=== PATIENT | male | born 1955 | race Caucasian/White ===

== ENCOUNTER → 2017-10-27 | Emergency (ER) | payer OTHER ==
[~2017-10-27] VITALS: Ht 170.2 cm; Wt 136.1 kg
[~2017-10-27] MED LIST: KETO10TA2 PO
== END | disposition home or self-care (01) ==
LOC: ER 23:08
DX: N21.0 Calculus in bladder (principal)

== ENCOUNTER 2019-07-09 11:22 | Outpatient (CLI) | payer OTHER | END 2019-07-09 11:38 | disposition home or self-care (01) | LOC: LAB 11:22 | DX: I10 Essential (primary) hypertension (principal); M54.5 Low back pain; Z01.810 Encounter for preprocedural cardiovascular examination; E03.8 Other specified hypothyroidism; E78.49 Other hyperlipidemia; E11.51 Type 2 diabetes mellitus with diabetic peripheral angiopathy without gangrene; E55.9 Vitamin D deficiency, unspecified; E11.9 Type 2 diabetes mellitus without complications; E66.8 Other obesity; R09.81 Nasal congestion; G47.30 Sleep apnea, unspecified; G47.37 Central sleep apnea in conditions classified elsewhere ==

== ENCOUNTER → 2019-07-10 | Outpatient (CLI) | payer OTHER | END | disposition home or self-care (01) | LOC: NUCLEAR 07:30 | DX: I11.9 Hypertensive heart disease without heart failure (principal); I10 Essential (primary) hypertension ==

== ENCOUNTER → 2019-10-12 13:13 | Outpatient (CLI) | payer OTHER | END | disposition home or self-care (01) | LOC: LAB 13:13 | DX: M54.5 Low back pain (principal); Z01.810 Encounter for preprocedural cardiovascular examination; E03.8 Other specified hypothyroidism; E78.89 Other lipoprotein metabolism disorders; E11.51 Type 2 diabetes mellitus with diabetic peripheral angiopathy without gangrene; E55.9 Vitamin D deficiency, unspecified; E66.8 Other obesity; I50.32 Chronic diastolic (congestive) heart failure; I50.20 Unspecified systolic (congestive) heart failure; R09.81 Nasal congestion; G47.30 Sleep apnea, unspecified; G47.37 Central sleep apnea in conditions classified elsewhere; Q23.8 Other congenital malformations of aortic and mitral valves; I77.1 Stricture of artery ==

== ENCOUNTER → 2019-10-13 10:32 | Outpatient (CLI) | payer OTHER | END | disposition home or self-care (01) | LOC: LAB 10:32 | DX: M54.5 Low back pain (principal); Z01.810 Encounter for preprocedural cardiovascular examination; E03.8 Other specified hypothyroidism; E78.89 Other lipoprotein metabolism disorders; E11.51 Type 2 diabetes mellitus with diabetic peripheral angiopathy without gangrene; E55.9 Vitamin D deficiency, unspecified; E66.8 Other obesity; I50.32 Chronic diastolic (congestive) heart failure; I50.20 Unspecified systolic (congestive) heart failure; R09.81 Nasal congestion; G47.30 Sleep apnea, unspecified; G47.37 Central sleep apnea in conditions classified elsewhere; Q23.8 Other congenital malformations of aortic and mitral valves; I77.1 Stricture of artery; Z12.11 Encounter for screening for malignant neoplasm of colon ==

== ENCOUNTER → 2020-02-15 08:37 | Outpatient (CLI) | payer OTHER | END | disposition home or self-care (01) | LOC: LAB 08:37 | PROVIDERS: ATTEND Internal Medicine | DX: M54.5 Low back pain (principal); E03.8 Other specified hypothyroidism; E78.89 Other lipoprotein metabolism disorders; E11.51 Type 2 diabetes mellitus with diabetic peripheral angiopathy without gangrene; E55.9 Vitamin D deficiency, unspecified; E66.8 Other obesity; I50.20 Unspecified systolic (congestive) heart failure; R09.81 Nasal congestion; G47.30 Sleep apnea, unspecified; G47.37 Central sleep apnea in conditions classified elsewhere; Q23.8 Other congenital malformations of aortic and mitral valves; N40.0 Benign prostatic hyperplasia without lower urinary tract symptoms ==

== ENCOUNTER 2020-02-22 09:16 | Outpatient (CLI) | payer OTHER | END 2020-02-22 09:25 | disposition home or self-care (01) | LOC: RAD 09:16 | DX: I31.3 Pericardial effusion (noninflammatory) (principal) ==

== ENCOUNTER → 2020-05-30 | Outpatient (CLI) | payer OTHER | END | disposition home or self-care (01) | LOC: LAB 13:19 | PROVIDERS: ATTEND Internal Medicine | DX: M54.5 Low back pain (principal); E03.8 Other specified hypothyroidism; E78.89 Other lipoprotein metabolism disorders; E11.51 Type 2 diabetes mellitus with diabetic peripheral angiopathy without gangrene; E55.9 Vitamin D deficiency, unspecified; E66.8 Other obesity; I50.32 Chronic diastolic (congestive) heart failure; I50.20 Unspecified systolic (congestive) heart failure; R09.81 Nasal congestion; G47.30 Sleep apnea, unspecified; G47.37 Central sleep apnea in conditions classified elsewhere; Q23.8 Other congenital malformations of aortic and mitral valves; I77.1 Stricture of artery ==

== ENCOUNTER 2020-07-04 14:50 | Emergency (ER) | payer OTHER ==
[~2020-07-04] VITALS: Ht 170.2 cm; Wt 107.0 kg
[2020-07-04] MEDS ORDERED: PLAVIX75 MG (15:03)
[2020-07-04] MEDS ORDERED: AZOR 10-20 MG1 EACH (15:03)
[2020-07-04] MEDS ORDERED: PEPCID AC20 MG (15:04)
[2020-07-04] MEDS ORDERED: AMIODARONE HCL100 MG (15:04)
[2020-07-04] MEDS ORDERED: ECOTRIN81 MG (15:04)
[2020-07-04] MEDS ORDERED: TOPROL XL25 M1 (15:04)
== END 2020-07-04 20:53 | disposition home or self-care (01) ==
LOC: ER 14:50
DX: N45.3 Epididymo-orchitis (principal); N39.0 Urinary tract infection, site not specified; N43.2 Other hydrocele; I86.1 Scrotal varices

== ENCOUNTER → 2020-07-06 10:14 | Outpatient (CLI) | payer OTHER ==
[~2020-07-06 10:14] MED LIST changes: +AMIODARONE HCL100 MG; +AZOR 10-20 MG1 EACH; +ECOTRIN81 MG; +PEPCID AC20 MG; +PLAVIX75 MG; +TOPROL XL25 M1
== END | disposition home or self-care (01) ==
LOC: LAB 10:14
PROVIDERS: ATTEND Internal Medicine Cardiovascular Disease
DX: N39.0 Urinary tract infection, site not specified (principal)

== ENCOUNTER 2020-09-12 09:38 | Outpatient (CLI) | payer OTHER | END 2020-09-12 09:46 | disposition home or self-care (01) | LOC: LAB 09:38 | PROVIDERS: ATTEND Urology | DX: R97.20 Elevated prostate specific antigen [PSA] (principal); E03.8 Other specified hypothyroidism; I10 Essential (primary) hypertension; M54.5 Low back pain; E78.89 Other lipoprotein metabolism disorders; E11.51 Type 2 diabetes mellitus with diabetic peripheral angiopathy without gangrene; E55.9 Vitamin D deficiency, unspecified; E66.8 Other obesity; R09.81 Nasal congestion; G47.30 Sleep apnea, unspecified; G47.37 Central sleep apnea in conditions classified elsewhere; Q23.8 Other congenital malformations of aortic and mitral valves; I77.1 Stricture of artery; N40.0 Benign prostatic hyperplasia without lower urinary tract symptoms; N30.00 Acute cystitis without hematuria; R31.1 Benign essential microscopic hematuria ==

== ENCOUNTER → 2020-09-15 09:58 | Outpatient (CLI) | payer OTHER | END | disposition home or self-care (01) | LOC: LAB 09:58 | PROVIDERS: ATTEND Urology | DX: R97.20 Elevated prostate specific antigen [PSA] (principal); N30.00 Acute cystitis without hematuria; N40.0 Benign prostatic hyperplasia without lower urinary tract symptoms; R31.1 Benign essential microscopic hematuria ==

== ENCOUNTER 2020-10-19 10:06 | Outpatient (CLI) | payer OTHER | END 2020-10-19 10:13 | disposition home or self-care (01) | LOC: LAB 10:06 | PROVIDERS: ATTEND Urology | DX: N30.00 Acute cystitis without hematuria (principal) ==

== ENCOUNTER 2020-10-25 08:15 | Outpatient (CLI) | payer OTHER | END 2020-10-25 08:30 | disposition home or self-care (01) | LOC: MAMO-SONO 08:15 → SONOGRAMA 08:15 | PROVIDERS: ATTEND Urology | DX: Q61.01 Congenital single renal cyst (principal); N40.0 Benign prostatic hyperplasia without lower urinary tract symptoms; R31.1 Benign essential microscopic hematuria; R33.8 Other retention of urine; N30.00 Acute cystitis without hematuria ==

== ENCOUNTER → 2020-12-13 09:05 | Outpatient (CLI) | payer OTHER | END | disposition home or self-care (01) | LOC: LAB 09:05 | PROVIDERS: ATTEND Internal Medicine | DX: I10 Essential (primary) hypertension (principal); M54.5 Low back pain; E03.8 Other specified hypothyroidism; E78.89 Other lipoprotein metabolism disorders; E11.51 Type 2 diabetes mellitus with diabetic peripheral angiopathy without gangrene; E66.8 Other obesity; I50.32 Chronic diastolic (congestive) heart failure; I50.20 Unspecified systolic (congestive) heart failure; R09.81 Nasal congestion; G47.37 Central sleep apnea in conditions classified elsewhere; G47.30 Sleep apnea, unspecified; Q23.8 Other congenital malformations of aortic and mitral valves; I77.1 Stricture of artery ==

== ENCOUNTER → 2020-12-15 09:25 | Outpatient (CLI) | payer OTHER | END | disposition home or self-care (01) | LOC: LAB 09:25 | PROVIDERS: ATTEND Internal Medicine | DX: I10 Essential (primary) hypertension (principal); M54.5 Low back pain; E03.9 Hypothyroidism, unspecified; E78.9 Disorder of lipoprotein metabolism, unspecified; E11.51 Type 2 diabetes mellitus with diabetic peripheral angiopathy without gangrene; E55.9 Vitamin D deficiency, unspecified; E11.9 Type 2 diabetes mellitus without complications; E66.8 Other obesity; I50.32 Chronic diastolic (congestive) heart failure; I50.20 Unspecified systolic (congestive) heart failure; R09.81 Nasal congestion; G47.30 Sleep apnea, unspecified; G47.37 Central sleep apnea in conditions classified elsewhere; Q23.8 Other congenital malformations of aortic and mitral valves; I77.1 Stricture of artery ==

== ENCOUNTER 2021-03-17 09:00 | Outpatient (CLI) | payer OTHER | END 2021-03-17 09:02 | disposition home or self-care (01) | LOC: LAB 09:00 | PROVIDERS: ATTEND Internal Medicine | DX: I10 Essential (primary) hypertension (principal); M54.5 Low back pain; E03.8 Other specified hypothyroidism; E78.89 Other lipoprotein metabolism disorders; E11.51 Type 2 diabetes mellitus with diabetic peripheral angiopathy without gangrene; E55.9 Vitamin D deficiency, unspecified; E66.8 Other obesity; R09.81 Nasal congestion; G47.30 Sleep apnea, unspecified; G47.37 Central sleep apnea in conditions classified elsewhere; Q23.8 Other congenital malformations of aortic and mitral valves; I77.1 Stricture of artery; I11.9 Hypertensive heart disease without heart failure ==

== ENCOUNTER → 2021-06-16 09:34 | Outpatient (CLI) | payer OTHER | END | disposition home or self-care (01) | LOC: LAB 09:34 | PROVIDERS: ATTEND Emergency Medicine Pediatric Emergency Medicine | DX: I10 Essential (primary) hypertension (principal); M54.59 Other low back pain; E03.8 Other specified hypothyroidism; E78.89 Other lipoprotein metabolism disorders; E11.51 Type 2 diabetes mellitus with diabetic peripheral angiopathy without gangrene; E55.9 Vitamin D deficiency, unspecified; E11.9 Type 2 diabetes mellitus without complications; E66.8 Other obesity; I50.20 Unspecified systolic (congestive) heart failure; R09.81 Nasal congestion; G47.30 Sleep apnea, unspecified; G47.37 Central sleep apnea in conditions classified elsewhere; Q23.8 Other congenital malformations of aortic and mitral valves; I77.1 Stricture of artery ==

== ENCOUNTER → 2021-07-21 09:41 | Outpatient (CLI) | payer OTHER | END | disposition home or self-care (01) | LOC: LAB 09:41 | PROVIDERS: ATTEND Internal Medicine Cardiovascular Disease | DX: I11.9 Hypertensive heart disease without heart failure (principal); E78.00 Pure hypercholesterolemia, unspecified ==

== ENCOUNTER 2021-09-25 08:52 | Outpatient (CLI) | payer OTHER | END 2021-09-25 09:12 | disposition home or self-care (01) | LOC: LAB 08:52 | PROVIDERS: ATTEND Internal Medicine | DX: I10 Essential (primary) hypertension (principal); E03.8 Other specified hypothyroidism; E78.89 Other lipoprotein metabolism disorders; E11.51 Type 2 diabetes mellitus with diabetic peripheral angiopathy without gangrene; E55.9 Vitamin D deficiency, unspecified; E66.8 Other obesity; I50.32 Chronic diastolic (congestive) heart failure; I50.20 Unspecified systolic (congestive) heart failure; R09.81 Nasal congestion; G47.30 Sleep apnea, unspecified; Q23.8 Other congenital malformations of aortic and mitral valves; I77.1 Stricture of artery ==

== ENCOUNTER 2021-12-25 08:54 | Outpatient (CLI) | payer OTHER | END 2021-12-25 09:16 | disposition home or self-care (01) | LOC: LAB 08:54 | PROVIDERS: ATTEND Internal Medicine | DX: I10 Essential (primary) hypertension (principal); M54.59 Other low back pain; E78.9 Disorder of lipoprotein metabolism, unspecified; E55.9 Vitamin D deficiency, unspecified; E11.9 Type 2 diabetes mellitus without complications; E66.8 Other obesity; I50.32 Chronic diastolic (congestive) heart failure; I50.20 Unspecified systolic (congestive) heart failure; R09.81 Nasal congestion; G47.30 Sleep apnea, unspecified; G47.37 Central sleep apnea in conditions classified elsewhere; Q23.8 Other congenital malformations of aortic and mitral valves; I77.1 Stricture of artery ==

== ENCOUNTER 2022-03-26 09:56 | Outpatient (CLI) | payer OTHER | END 2022-03-26 09:57 | disposition home or self-care (01) | LOC: LAB 09:56 | PROVIDERS: ATTEND Internal Medicine | DX: I10 Essential (primary) hypertension (principal); M54.50 Low back pain, unspecified; E03.9 Hypothyroidism, unspecified; E78.9 Disorder of lipoprotein metabolism, unspecified; E55.9 Vitamin D deficiency, unspecified; E11.9 Type 2 diabetes mellitus without complications; E66.8 Other obesity; I50.32 Chronic diastolic (congestive) heart failure; I50.20 Unspecified systolic (congestive) heart failure; R09.81 Nasal congestion; G47.30 Sleep apnea, unspecified; G47.37 Central sleep apnea in conditions classified elsewhere; Q23.8 Other congenital malformations of aortic and mitral valves; I77.1 Stricture of artery; N39.0 Urinary tract infection, site not specified; Z12.11 Encounter for screening for malignant neoplasm of colon ==

== ENCOUNTER 2022-03-27 10:51 | Outpatient (CLI) | payer OTHER | END 2022-03-27 10:58 | disposition home or self-care (01) | LOC: LAB 10:51 | PROVIDERS: ATTEND Internal Medicine | DX: I10 Essential (primary) hypertension (principal); M54.50 Low back pain, unspecified; E03.9 Hypothyroidism, unspecified; E78.9 Disorder of lipoprotein metabolism, unspecified; E55.9 Vitamin D deficiency, unspecified; E11.9 Type 2 diabetes mellitus without complications; E66.8 Other obesity; I50.32 Chronic diastolic (congestive) heart failure; I50.20 Unspecified systolic (congestive) heart failure; R09.81 Nasal congestion; G47.30 Sleep apnea, unspecified; G47.37 Central sleep apnea in conditions classified elsewhere; Q23.8 Other congenital malformations of aortic and mitral valves; I77.1 Stricture of artery; N39.0 Urinary tract infection, site not specified; Z12.11 Encounter for screening for malignant neoplasm of colon ==

== ENCOUNTER 2022-07-31 09:09 | Outpatient (CLI) | payer OTHER | END 2022-07-31 09:11 | disposition home or self-care (01) | LOC: LAB 09:09 | PROVIDERS: ATTEND Internal Medicine | DX: I10 Essential (primary) hypertension (principal); M54.50 Low back pain, unspecified; E03.9 Hypothyroidism, unspecified; E78.9 Disorder of lipoprotein metabolism, unspecified; E11.9 Type 2 diabetes mellitus without complications; E55.9 Vitamin D deficiency, unspecified; E66.8 Other obesity; I50.20 Unspecified systolic (congestive) heart failure; R09.81 Nasal congestion; G47.30 Sleep apnea, unspecified; G47.37 Central sleep apnea in conditions classified elsewhere; Q23.8 Other congenital malformations of aortic and mitral valves; I77.1 Stricture of artery; N39.0 Urinary tract infection, site not specified; Z12.11 Encounter for screening for malignant neoplasm of colon ==

== ENCOUNTER → 2022-08-01 09:35 | Outpatient (CLI) | payer OTHER | END | disposition home or self-care (01) | LOC: LAB 09:35 | PROVIDERS: ATTEND Internal Medicine | DX: I10 Essential (primary) hypertension (principal); M54.50 Low back pain, unspecified; E03.9 Hypothyroidism, unspecified; E78.9 Disorder of lipoprotein metabolism, unspecified; E55.9 Vitamin D deficiency, unspecified; E11.9 Type 2 diabetes mellitus without complications; E66.8 Other obesity; I50.32 Chronic diastolic (congestive) heart failure; I50.20 Unspecified systolic (congestive) heart failure; R09.81 Nasal congestion; G47.30 Sleep apnea, unspecified; Q23.8 Other congenital malformations of aortic and mitral valves; I77.1 Stricture of artery; N39.0 Urinary tract infection, site not specified; Z12.11 Encounter for screening for malignant neoplasm of colon ==

== ENCOUNTER 2022-08-17 09:22 | Outpatient (CLI) | payer OTHER | END 2022-08-17 09:27 | disposition home or self-care (01) | LOC: LAB 09:22 | PROVIDERS: ATTEND Internal Medicine Cardiovascular Disease | DX: E11.9 Type 2 diabetes mellitus without complications (principal); E78.00 Pure hypercholesterolemia, unspecified; I11.9 Hypertensive heart disease without heart failure ==

== ENCOUNTER 2022-11-08 09:20 | Outpatient (CLI) | payer OTHER | END 2022-11-08 09:21 | disposition home or self-care (01) | LOC: LAB 09:20 | PROVIDERS: ATTEND Internal Medicine | DX: M54.59 Other low back pain (principal); E03.9 Hypothyroidism, unspecified; E78.9 Disorder of lipoprotein metabolism, unspecified; E55.9 Vitamin D deficiency, unspecified; E11.9 Type 2 diabetes mellitus without complications; E66.8 Other obesity; I50.32 Chronic diastolic (congestive) heart failure; I50.20 Unspecified systolic (congestive) heart failure; R09.81 Nasal congestion; G47.30 Sleep apnea, unspecified; G47.37 Central sleep apnea in conditions classified elsewhere; Q23.8 Other congenital malformations of aortic and mitral valves; I77.1 Stricture of artery; N39.0 Urinary tract infection, site not specified; I10 Essential (primary) hypertension ==

== ENCOUNTER 2022-12-18 09:08 | Outpatient (CLI) | payer OTHER | END 2022-12-18 09:14 | disposition home or self-care (01) | LOC: LAB 09:08 | PROVIDERS: ATTEND Internal Medicine Cardiovascular Disease | DX: I11.9 Hypertensive heart disease without heart failure (principal); E78.1 Pure hyperglyceridemia; E11.9 Type 2 diabetes mellitus without complications ==

== ENCOUNTER → 2023-02-11 09:37 | Outpatient (CLI) | payer OTHER | END | disposition home or self-care (01) | LOC: LAB 09:37 | PROVIDERS: ATTEND Internal Medicine | DX: M54.59 Other low back pain (principal); E03.9 Hypothyroidism, unspecified; E78.9 Disorder of lipoprotein metabolism, unspecified; E55.9 Vitamin D deficiency, unspecified; E11.9 Type 2 diabetes mellitus without complications; E66.8 Other obesity; I50.32 Chronic diastolic (congestive) heart failure; I50.20 Unspecified systolic (congestive) heart failure; R06.81 Apnea, not elsewhere classified; G47.30 Sleep apnea, unspecified; G47.37 Central sleep apnea in conditions classified elsewhere; Q23.8 Other congenital malformations of aortic and mitral valves; I77.1 Stricture of artery; N39.0 Urinary tract infection, site not specified; I73.9 Peripheral vascular disease, unspecified ==

== ENCOUNTER 2023-05-22 09:24 | Outpatient (CLI) | payer OTHER | END 2023-05-22 09:26 | disposition home or self-care (01) | LOC: LAB 09:24 | PROVIDERS: ATTEND Internal Medicine | DX: I10 Essential (primary) hypertension (principal); E03.9 Hypothyroidism, unspecified; E78.9 Disorder of lipoprotein metabolism, unspecified; E55.9 Vitamin D deficiency, unspecified; E11.9 Type 2 diabetes mellitus without complications; E66.8 Other obesity; I50.32 Chronic diastolic (congestive) heart failure; I50.20 Unspecified systolic (congestive) heart failure; R09.81 Nasal congestion; G47.30 Sleep apnea, unspecified; G47.37 Central sleep apnea in conditions classified elsewhere; Q23.8 Other congenital malformations of aortic and mitral valves; I77.1 Stricture of artery; N39.0 Urinary tract infection, site not specified; I73.9 Peripheral vascular disease, unspecified; Z12.11 Encounter for screening for malignant neoplasm of colon; N41.0 Acute prostatitis; Z91.013 Allergy to seafood ==

== ENCOUNTER → 2023-05-24 11:16 | Outpatient (CLI) | payer OTHER | END | disposition home or self-care (01) | LOC: LAB 11:16 | PROVIDERS: ATTEND Internal Medicine | DX: I10 Essential (primary) hypertension (principal); M54.59 Other low back pain; E03.9 Hypothyroidism, unspecified; E78.9 Disorder of lipoprotein metabolism, unspecified; E55.9 Vitamin D deficiency, unspecified; E11.9 Type 2 diabetes mellitus without complications; E66.8 Other obesity; I50.32 Chronic diastolic (congestive) heart failure; I50.20 Unspecified systolic (congestive) heart failure; R09.81 Nasal congestion; G47.30 Sleep apnea, unspecified; G47.37 Central sleep apnea in conditions classified elsewhere; Q23.8 Other congenital malformations of aortic and mitral valves; I77.1 Stricture of artery; N39.0 Urinary tract infection, site not specified; I73.9 Peripheral vascular disease, unspecified; Z12.11 Encounter for screening for malignant neoplasm of colon; N41.0 Acute prostatitis ==

== ENCOUNTER → 2023-10-28 11:36 | Outpatient (CLI) | payer OTHER ==
[2023-10-30 10:11] LABS: % FREE PSA 21.5 % (.); free psa 0.28 ng/mL; total psa 1.3 ng/mL (0.0-4.0)
== END | disposition home or self-care (01) ==
LOC: LAB 11:36
PROVIDERS: ATTEND Urology
DX: N40.0 Benign prostatic hyperplasia without lower urinary tract symptoms (principal); N30.00 Acute cystitis without hematuria; N32.81 Overactive bladder; N39.41 Urge incontinence; R97.20 Elevated prostate specific antigen [PSA]; N40.1 Benign prostatic hyperplasia with lower urinary tract symptoms

== ENCOUNTER 2023-10-28 12:11 | Outpatient (CLI) | payer OTHER | END 2023-10-28 12:22 | disposition home or self-care (01) | LOC: SONOGRAMA 12:11 | PROVIDERS: ATTEND Urology | DX: N40.0 Benign prostatic hyperplasia without lower urinary tract symptoms (principal); N30.00 Acute cystitis without hematuria; N32.81 Overactive bladder; N39.41 Urge incontinence; N20.0 Calculus of kidney; R33.9 Retention of urine, unspecified ==

== ENCOUNTER 2024-08-17 08:16 | Outpatient (CLI) | payer OTHER | END 2024-08-17 08:21 | disposition home or self-care (01) | LOC: NUCLEAR 08:16 | PROVIDERS: ATTEND Thoracic Surgery (Cardiothoracic Vascular Surgery) | DX: I87.2 Venous insufficiency (chronic) (peripheral) (principal) ==

== ENCOUNTER 2024-08-18 09:00 | Outpatient (CLI) | payer OTHER | END 2024-08-18 09:01 | disposition home or self-care (01) | LOC: NUCLEAR 09:00 | PROVIDERS: ATTEND Thoracic Surgery (Cardiothoracic Vascular Surgery) | DX: I73.9 Peripheral vascular disease, unspecified (principal) ==